=== PATIENT | male | born 1985 | race Caucasian/White ===

== ENCOUNTER → 2017-05-04 | Outpatient (CLI) | payer OTHER ==
--- NOTE | 2017-05-04 14:01 | MRI ---
MRI right knee without contrast Indication: Knee pain with 'Popping and clicking' Technique: Multisequence, multiplanar MR images of the right knee were obtained without IV contrast. Comparison: None Findings: Marrow signal is normal. No acute fracture or malalignment is identified. There is no appreciable chondromalacia of the femorotibial or patellofemoral compartments. No reacti ve subchondral marrow edema is seen. There is no appreciable joint effusion. No popliteal fossa cyst is identified. There is a horizontal cleavage tear of the posterior horn medial meniscus which extends into the men iscal body. An addition separate, oblique, peripheral tear of the posterior horn medial meniscus is also seen, which extends to the inferior articular surface (image [id number], series 701). The lateral me niscus is intact. The cruciate ligaments, MCL, major lateral stabilizers of the knee and extensor mechanism are unrema rkable. Impression: 1. Horizontal cleavage tear of the posterior horn and body medial meniscus. 2. Additional separate, peripheral tear of the posterior horn medial meniscus, as detailed above. Reported By:
== END | disposition home or self-care (01) | DRG 556 ==
LOC: RAD 10:55
PROVIDERS: ATTEND Internal Medicine
DX: M25.561 Pain in right knee (principal); S83.221A Peripheral tear of medial meniscus, current injury, right knee, initial encounter; S83.241A Other tear of medial meniscus, current injury, right knee, initial encounter; X58.XXXA Exposure to other specified factors, initial encounter
CPT/HCPCS: 73721

== ENCOUNTER → 2017-07-26 | Outpatient (CLI) | payer OTHER ==
--- NOTE | 2017-07-26 10:36 | US ---
HISTORY: Right upper quadrant pain Study: Right upper quadrant ultrasound: Multiplanar ultrasonographic examination of the right upper abdominal quadrant was performed. Comparison: None Findings: The liver is of moderately increased echogenicity felt to be on the basis of moderate fatty infiltrat ion. No evidence of intrahepatic biliary duct dilatation is noted. The gallbladder shows no evidence of gallstones, pericholecystic fluid or gallbladder wall thickening. The common bile duct is normal a t 3.7 mm. The pancreas as visualized is normal. The right kidney is of normal size, echogenicity and echotexture measuring 11.3 cm in length by 5.7 x 5.7 cm. IMPRESSION: 1. Moderate fatty infiltration of the liver. 2. Otherwise negative right upper quadrant ultrasound. Reported By:
== END ==
LOC: RAD 07:20
PROVIDERS: ATTEND Nurse Practitioner Family
DX: R10.11 Right upper quadrant pain (principal); R11.0 Nausea; K21.9 Gastro-esophageal reflux disease without esophagitis
CPT/HCPCS: 76705

== ENCOUNTER → 2017-08-16 | Outpatient (CLI) | payer OTHER ==
--- NOTE | 2017-08-17 15:18 | NM ---
HIDA SCAN WITH EJECTION FRACTION. HISTORY: RIGHT UPPER QUADRANT PAIN Comparison: None Technique: Multiple scintigraphic images of the abdomen were obtained the intravenous administration of dose mCi of technetium labeled Choletec. Following distention of the gallbladder with radiotracer a slow intravenous infusion of dose microgra ms of Kinevac was performed. An estimated gallbladder ejection fraction was calculated. Findings: Homogeneous uptake of radiotracer is seen throughout the liver. The intrabiliary ductal system is ob served normally. The common hepatic and common bile duct appear unremarkable with normal biliary-bow el transit. The gallbladder is observed to fill normally. A decreased gallbladder ejection fraction of 10.2% (normal > 35%) is observed. IMPRESSION: 1. Normal hepatobiliary imaging scan. 2. Decreased gallbladder ejection fraction of 10.2%. Reported By:
== END ==
LOC: RAD 08:55
PROVIDERS: ATTEND Nurse Practitioner Family
DX: R10.11 Right upper quadrant pain (principal)
CPT/HCPCS: 78227; A9537